=== PATIENT | male | born 1985 | race Caucasian/White ===

== ENCOUNTER 2024-05-15 18:11 | Emergency (ER) | payer OTHER, SELFPAY ==
[2024-05-15 18:20] VITALS: BP 140/86
--- NOTE | 2024-05-15 20:00 | ED.GENMED ---
History of Present Illness
General
Chief Complaint: Extremity Pain (non-traumatic)
Time Seen by Provider: 05/15/24 19:27
History of Present Illness
History of Present Illness:
38-year-old male presents to the emergency department for evaluation of right ankle injury sustained after falling from a tree stand while hunting today. He was initially able to bear weight however the pain became too great and as a result cannot
put any weight on it clearly deformed right ankle. Denies any knee pain
Past History
Past History
ED Past Medical History: Other (renal calc)
ED Past Surgical History: None
Social History
Tobacco: Non-smoker
Alcohol: Occasional
Personal: Single
Living: with family
Employment: Employed
Family History
Family History: Other (Noncontributory)
Review of Systems
Review of Systems
Allergies reviewed?: Yes
All Other Systems: ROS reviewed and negative except as documented in HPI and ROS
Phy Exam
Physical Exam
Physical Exam:
GEN: Well appearing, NAD, WDWN
HEENT: Oral mucosa moist, no scleral icterus
Cardiac: Regular rate
Lung: No respiratory distress, no tachypnea
MSK: Severe swelling and deformity with ecchymosis to the right ankle, no tenderness to the proximal fibula
Skin: Good color, no pallor or jaundice, no rashes
Neuro: AO x3, moves all extremities freely
Psych: Calm, cooperative
Course
Orders/Labs/Results
Orders:
Orders
05/15/24 18:21
Ankle, Right 3 view CR [CR Ankle - Right Min 3 Views *] Urgent
Comment:
Reason For Exam: swelling
05/15/24 19:45
Leg Tibia/Fibula, Right 2 View [CR Leg Tibia/fibula Right 2 Vw] Urgent
Comment:
Reason For Exam: fall, ankle fx
05/15/24 20:00
Oxycodone [Roxicodone] 5 mg PO NOW STA
Vital Signs
Initial and Last Documented VS:
Initial Vital Signs
Temp Pulse Resp BP Pulse Ox
98.2 F 95 18 140/86 97
05/15/24 18:20 05/15/24 18:20 05/15/24 18:20 05/15/24 18:20 05/15/24 18:20
Last Documented Vital Signs
Temp Pulse Resp BP Pulse Ox
98.2 F 88 18 140/80 98
05/15/24 18:20 05/15/24 22:39 05/15/24 22:39 05/15/24 22:39 05/15/24 22:39
Procedures
Splinting/Sling Placement
Right Ankle:
Procedure completed by: Ranjan Elizabeth PA-C
Pre-splint extermity exam: neurovascular intact
Type of splint: sugar-tong and posterior short leg
Splint material: fiberglass
Normal distal neurovascular exam?: Yes
MDM/Problems Addressed
MDM/Problems Addressed:
Patient placed in a bulky sugar-tong with short leg posterior splint. Imaging reviewed with orthopedics and will arrange for outpatient follow-up, strict nonweightbearing status advised
*Critical Care Note
Total Time (30-74mins, 75-104mins- exclusive of procedures): Not Applicable
ED Attending Note
-
Portions of this chart may have been created with voice recognition software.� Occasional wrong word or��sound alike� substitutions may have occurred due to the inherent limitations of voice recognition software.
Discharge Plan
Departure
Patient Disposition: Home (Routine Discharge)
Date of Disposition: 05/15/24
Time of Disposition: 21:23
Patient with high blood pressure during this ER visit?: No
Discharge Problem:
Bimalleolar fracture of right ankle
Instructions: Ankle Fracture ED
Prescriptions:
New
oxycodone 5 mg tablet
5 mg PO Q8H PRN (Reason: Pain) Qty: 10 0RF
No Action
cephalexin 500 MG capsule
500 mg PO TID Qty: 15 0RF
Referrals:
Michael Mascorro MD [Active] -
Activity Restrictions/Additional Instructions:
No weight bearing whatsoever
Follow up with Ortho by phone call tomorrow AM
Interventions
Interventions:
*Risk Screen - Suicide Last Done: 05/15/24 18:21
*General Assessment Last Done: 05/15/24 18:20
*Neglect/Abuse Screening Last Done: 05/15/24 18:21
*ED COVID-19 Vaccine History Last Done: 05/15/24 18:20
*Nursing Disposition Last Done: 05/15/24 22:39
ED-Skin Assessment Last Done: 05/15/24 19:20
ED-Peripheral Vascular Assessment Last Done: 05/15/24 19:20
ED-Musculoskeletal Assessment Last Done: 05/15/24 19:20
Discharge Date and Time
Discharge Date/Time: 05/15/24 22:42
Print Language: [id number]
[2024-05-15] MEDS: ROXICODONE 5 MG PO (20:31)
[2024-05-15 22:39] VITALS: BP 140/80
== END 2024-05-15 22:42 | disposition home or self-care (01) ==
LOC: EMR 18:11
PROVIDERS: EMERGENCY PHYSICIAN Emergency Medicine
DX: S82.841A Displaced bimalleolar fracture of right lower leg, initial encounter for closed fracture (principal); W13.8XXA Fall from, out of or through other building or structure, initial encounter
CPT/HCPCS: 99283; 73590; 73610